=== PATIENT | male | born 1965 | race Caucasian/White ===

== ENCOUNTER 2022-09-11 23:53 | Emergency (ER) | payer OTHER, SELFPAY ==
[2022-09-11 23:57] VITALS: BP 142/91; PULSE 127; RESP 16; TEMP 38; O2SAT 96; BMI 24.7
[2022-09-12 00:33] LABS: Rapid Strep A Test Negative (Negative)
--- NOTE | 2022-09-12 00:45 | W.ED.FEVER ---
HPI - Fever General: Chief Complaint: Fever Stated Complaint: fever, thoat sore Time Seen by Provider: 09/12/22 00:37 History of Present Illness: 57-year-old gentleman presenting with left ear pain and sore throat. Onset of symptoms approximately 8 hours ago. No choking episode. Has had pain with swallowing which is made it difficult. He is able to tolerate p.o. intake however. No respiratory distress or difficulty breathing. No allergic reaction symptoms or history of similar in the past. No other specific changes in health, exacerbating, or alleviating factors identified. Onset (ago): hour(s) Exacerbating factors: swallowing Review of Systems General: Reports: 10 or more systems reviewed and unremarkable except in HPI and below PFSH ED PFSH: Medical History (Updated 09/24/22 @ 20:36 by Jenaro Lee MD) No significant past medical history Surgical History (Updated 09/24/22 @ 20:36 by Jenaro Lee MD) No significant past surgical history Physical Exam Const: COMMON NORMALS: alert GENERAL APPEARANCE: cooperative and well developed HENMT: COMMON NORMALS: normocephalic and atraumatic HEAD & SCALP: normocephalic and atraumatic OTHER: Right ear unremarkable. Left ear with evidence of otitis media with bulging opaque tympanic membrane. No perforation. No otitis externa or mastoid tenderness. External ear appears unremarkable posterior pharynx with normal anatomy without evidence of deep infection. Eye: COMMON NORMALS: conjunctivae normal CONJUNCTIVA: Yes conjunctivae normal SCLERA: sclerae normal Neck/C-Spine: COMMON NORMALS: supple GENERAL: Yes trachea midline Resp: COMMON NORMALS: clear to auscultation bilaterally EFFORT & INSPECTION: Yes able to speak in complete sentences AUSCULTATION: clear to auscultation bilaterally Cardio: COMMON NORMALS: regular rhythm RATE: tachycardic RHYTHM: regular rhythm GI: COMMON NORMALS: Soft to palpation PALPATION: Yes Soft to palpation and No Tenderness to palpation present (GI) Extremity: GENERAL: Yes normal exam except as noted and No edema Neuro: COMMON NORMALS: moves all extremities SENSORIUM/ORIENTATION: Yes alert and No Orientation impaired Psych: COMMON NORMALS: mental status grossly normal and Normal thought process present THOUGHT PROCESS: Normal thought process present Course Vital Signs: Vital signs: Vital Signs Temperature 99.2 F 07/05/23 02:18 Pulse Rate 94 09/12/22 02:18 Respiratory Rate 16 09/12/22 02:18 Blood Pressure 155/94 09/12/22 02:18 Pulse Oximetry 95 09/12/22 02:18 Oxygen Delivery Me thod Room Air 09/11/22 23:57 MDM - Fever Medical Decision Making 57-year-old gentleman presenting with fever and sore throat/ear pain. He is tachycardic and mildly ill however nontoxic. Clinical exam with left otitis media. Strep negative. Improved with Toradol, dose of steroids, antibiotic, fluids. The results of ED evaluation were discussed with the patient including prescriptions and/or symptomatic cares (if applicable) including appropriate and responsible use, followup plan, and return precautions. The patient verbalized understanding and felt safe for discharge. Medical Records I reviewed the patient's medical records. Lab Data I reviewed the patient's lab results. Laboratory Results Group A Strep Rapid Negative (Negative) 09/12/22 00:13 Discharge Plan Discharge Patient Disposition: Home Clinical Impression: Acute otitis media, left, Acute sore throat, Fever Condition: Stable Prescriptions: New amoxicillin-pot clavulanate 875-125 mg tablet 1 tab PO BID Qty: 20 0RF Discharge Orders: Discharge ED (Routine); Ordered 09/12/22 Ordered By: Jenaro eLe Discharge Diet: Usual diet Discharge Activity: Increase activity as tolerated Patient Instructions: Ear Infection (ED), Sore Throat - Adult Activity Restrictions/Additional Instructions: Thank you for visiting the emergency department. You were seen and evaluated for fever, ear and throat pain. The most likely cause of your symptoms is related to your infection which will be treated with antibiotics. We are pleased that you had improvement of symptoms in the emergency department. You may use [id number] medications such as acetaminophen and ibuprofen for pain however please do not exceed the daily recommended dosage as listed on the packaging and please keep in mind that many namebrand medications contain the same active ingredients. Please avoid these medications if previously instructed to do so by another physician due to other underlying medical condition. Return for uncontrolled pain, difficulty opening mouth, difficulty swallowing or tolerating oral secretions, difficulty breathing, or anything else that you are concerned about and feel needs emergency department evaluation. 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
[2022-09-12] MEDS: sodium chloride 0.9% 1,000 ML 999 ML IV (00:57)
[2022-09-12] MEDS: dexamethasone 10 mg/mL INJ IVP (00:58)
[2022-09-12] MEDS: ketorolac 30 mg/mL INJ 15 MG IVP (01:03)
[2022-09-12 02:05] VITALS: BP 155/94; PULSE 94; RESP 16; TEMP 37.3; O2SAT 95
[2022-09-12] MEDS: amoxicillin-clav 875-125 mg Tablet 1 TAB PO (02:06)
[2022-09-12 02:18] VITALS: BP 155/94; PULSE 94; RESP 16; TEMP 37.3; O2SAT 95
== END 2022-09-12 02:19 | disposition home or self-care (01) ==
PROVIDERS: Registered Nurse; Emergency Provider Emergency Medicine
DX: H66.92 Otitis media, unspecified, left ear (principal); J02.9 Acute pharyngitis, unspecified
CPT/HCPCS: 87081; 87880; 96361; 96374; 96375; 99284; J1100; J1885; J7030